=== PATIENT | male | born 1965 | race Caucasian/White ===

== ENCOUNTER 2016-04-20 20:46 | Emergency (ER) | payer BC ==
--- NOTE | 2016-04-20 22:03 | XR ---
EXAMINATION TYPE: XR chest 2V DATE OF EXAM: 04/20/2016 9:55 PM COMPARISON: NONE HISTORY: Trauma TECHNIQUE: Frontal and lateral views of the chest are obtained. FINDINGS: There is no focal air space opacity, pleural effusion, or pneumothorax seen. The cardiac silhouette size is within normal limits. The osseous structures are intact. IMPRESSION: No acute cardiopulmonary process.
--- NOTE | 2016-04-20 22:05 | XR ---
Soft tissue neck HISTORY: Pain, feels like something stuck in throat 2 views of the neck There is overlying artifact. No radiopaque foreign body is evident. The airway is patent. Epiglottis shows a normal appearance in profile. There is reversal the normal cervical lordosis, kyphosis center ed at C4. Some degenerative disc changes are present. IMPRESSION: Loss of cervical lordosis.
--- NOTE | 2016-04-20 22:33 | XR ---
EXAMINATION TYPE: XR abdomen 1V DATE OF EXAM: 04/20/2016 10:24 PM COMPARISON: NONE HISTORY: Abdominal pain TECHNIQUE: 2 views FINDINGS: Bowel gas pattern is normal. There is no sign of intestinal obstruction or pneumoperitoneum . Fecal pattern is normal. Lung bases are clear. There are no pathologic calcifications over the kidn eys. IMPRESSION: Nonacute abdomen.
--- NOTE | 2016-04-20 22:53 | ED ---
ENT HPI - General Chief complaint: ENT Stated complaint: grinding bit stuck in throat, dentist sent Time Seen by Provider: 04/20/16 21:25 Source: patient, RN notes reviewed Mode of arrival: ambulatory Limitations: no limitations - History of Present Illness Initial comments: This is a 50-year-old male who was having dental procedure done prior to admission when apparently a small drill was lost in his upper oral airway. His dentist did try to suction out also patient did vomit try to get whatever was out. He has a feeling to herself at the base of his tongue apparently was a small mass. He has a history of this in the past. He denies any difficulty swallowing denies any shortness of breath any chest pain or abdominal pain. MD complaint: other - Related Data Home Medications Medication Instructions Recorded Confirmed No Known Home Medications [No 04/20/16 04/20/16 Known Home Medications] Allergies Allergy/AdvReac Type Severity Reaction Status Date / Time No Known Allergies Allergy Verified 04/20/16 21:26 Review of Systems ROS Statement: Those systems with pertinent positive or pertinent negative responses have been documented in the HPI. ROS Other: All systems not noted in ROS Statement are negative. Past Medical History Past Medical History: No Reported History History of Any Multi-Drug Resistant Organisms: None Reported Additional Past Surgical History / Comment(s): throat surgery Past Psychological History: No Psychological Hx Reported Smoking Status: Current every day smoker Past Alcohol Use History: None Reported Past Drug Use History: Marijuana General Exam - General Exam Comments Initial Comments: Is a well-developed well-nourished awake alert oriented 3 male Limitations: no limitations General appearance: alert, in no apparent distress Head exam: Present: atraumatic, normocephalic, normal inspection Eye exam: Present: normal appearance, PERRL, EOMI. Absent: scleral icterus, conjunctival injection, periorbital swelling ENT exam: Present: normal exam, mucous membranes moist Neck exam: Present: normal inspection. Absent: tenderness, meningismus, lymphadenopathy Respiratory exam: Present: normal lung sounds bilaterally. Absent: respiratory distress, wheezes, rales, rhonchi, stridor Cardiovascular Exam: Present: regular rate, normal rhythm, normal heart sounds. Absent: systolic murmur, diastolic murmur, rubs, gallop, clicks GI/Abdominal exam: Present: soft, normal bowel sounds. Absent: distended, tenderness, guarding, rebound, rigid Extremities exam: Present: normal inspection, full ROM, normal capillary refill. Absent: tenderness, pedal edema, joint swelling, calf tenderness Back exam: Present: normal inspection Neurological exam: Present: alert, oriented X3, CN II-XII intact Psychiatric exam: Present: normal affect, normal mood Skin exam: Present: warm, dry, intact, normal color. Absent: rash Medical Decision Making - Medical Decision Making I did discuss the findings with the patient no evidence of foreign body is seen I did review the sample drilled the patient did bring in it is metallic is just less than 1 inch long. Patient will be discharged he was warned about findings that he could experiences there is indeed a foreign body but again no evidence on x-ray I did review the images it was read by radiology. - Radiology Data Radiology results: report reviewed (X-rays were done of the soft tissue neck chest and abdomen no evidence of any foreign body is seen.), image reviewed Disposition Clinical Impression: Feared condition not demonstrated Disposition: HOME SELF-CARE Condition: Good Additional Instructions: Follow-up with her dentist and return if needed
[2016-04-20 23:20] VITALS: BP 125/76; PULSE 65; RESP 16; TEMP 98.1
== END 2016-04-20 23:19 | disposition home or self-care (01) ==
LOC: EC 20:46
DX: Z03.89 Encounter for observation for other suspected diseases and conditions ruled out (principal); F17.200 Nicotine dependence, unspecified, uncomplicated
CPT/HCPCS: 70360; 71020; 74000; 99283

== ENCOUNTER → 2022-06-24 | Outpatient (CLI) | payer BC ==
--- NOTE | 2022-06-24 10:51 | CT ---
EXAMINATION TYPE: CT abdomen wo/w con DATE OF EXAM: 06/24/2022 COMPARISON: Kidney ultrasound 05/30/2022 HISTORY: 57-year-old male N28.1, right renal mass TECHNIQUE: Contiguous axial scanning of the abdomen before and after administration of 70 ml Isovue 3 00 IV contrast. Delayed images through the kidneys and coronal/sagittal reconstructions performed. CT DLP: 860 mGycm Automated exposure control for dose reduction was used. FINDINGS: Heart normal size without pericardial effusion. Lung bases clear without pleural effusion. Ectatic l ower descending thoracic aorta at 2.9 cm. No focal liver lesion or biliary ductal dilatation. Portal venous system is patent. Gallbladder, adrenal glands, left kidney, spleen with hilar splenule, and pancreas within normal limi ts. There is a benign 7 mm renal cortical cyst at the right kidney midpole. At the lateral upper to mid pole corresponding to the ultrasound lesion, there is an indeterminate 1. 5 cm cortical lesion. A hemorrhagic cyst or small early RCC are both in the differential. The former is somewhat favored at this time. No dilated small bowel, including, or free air. No mesenteric or retroperitoneal lymphadenopathy. Mild atherosclerotic calcifications infrarenal and aorta and common iliac arteries. Moderate stool burden. No pericolonic inflammatory change. Pelvis not imaged. Bones: Osseous destructive process. IMPRESSION: 1. INDETERMINATE 1.5 CM CORTICAL LESION AT THE UPPER TO MID POLE OF THE RIGHT KIDNEY. BOTH HEMORRHAGI C CYST AND A SMALL EARLY RCC ARE IN THE DIFFERENTIAL. THE FORMER IS SOMEWHAT FAVORED AT THIS TIME. CO NSIDER SURVEILLANCE FOLLOW-UP. INTERVENTION IF ANY SUSPICIOUS CHANGES DEVELOP. 2. MODERATE STOOL BURDEN.
== END | disposition home or self-care (01) ==
LOC: RADCTMAIN 09:32
PROVIDERS: ATTEND Urology
DX: N28.1 Cyst of kidney, acquired (principal)
CPT/HCPCS: 74170; Q9967

== ENCOUNTER → 2023-07-12 | Outpatient (CLI) | payer BC ==
--- NOTE | 2023-07-16 10:47 | MR ---
EXAMINATION TYPE: MR abdomen wo/w con DATE OF EXAM: 07/12/2023 6:07 PM CLINICAL INDICATION:Male, 58 years old with history of N28.1 RENAL CYST; PHH, F/U renal cyst COMPARISON: CT scan abdomen from 06/24/2022, 05/30/2022 ultrasound. TECHNIQUE: Multiplanar multi-sequence imaging was performed without contrast. Post contrast imaging was performed. Post IV contrast subtraction images were also submitted for review. IV Contrast: 7.5 cc Gadobutrol FINDINGS: LOWER CHEST: No gross irregularity. ABDOMEN Liver: No evidence for hepatic steatosis or cirrhosis. Gallbladder and Bile ducts: No evidence for ductal dilation, or biliary stricture or evidence of chol edocholithiasis. The gallbladder is within normal limits. Pancreas: No ductal dilation. No evidence for solid mass. Spleen: Normal for size. Adrenal glands: Unremarkable. Kidneys: Right renal cyst in the superior pole is low T2/high T1 signal measuring 13 mm. Postcontrast imaging with subtraction is misregistered and of limited value. No obvious enhancement thought to be present. No left renal masses. Stomach and Bowel: No evidence for bowel wall thickening or evidence for obstruction. Retroperitoneum/Peritoneum: No evidence of pneumoperitoneum or free fluid. Vasculature: No aortic aneurysm. Musculoskeletal: The osseous structures appear intact. Lymph Nodes: No gross evidence for lymphadenopathy. Abdominal wall: Unremarkable. IMPRESSION: Right renal lesion measuring 13 mm which is intrinsically high T1 signal suggesting proteinaceous hem orrhagic cyst. Subtraction imaging is misregistered to evaluate for subtle enhancement. Consider foll ow-up in 6 months to ensure stability.
== END | disposition home or self-care (01) ==
LOC: RADMRIMAIN 16:48
PROVIDERS: ATTEND Urology
DX: N28.89 Other specified disorders of kidney and ureter (principal); N28.1 Cyst of kidney, acquired
CPT/HCPCS: 74183; A9585

== ENCOUNTER 2024-07-18 04:06 | Observation (INO) | payer BC ==
[2024-07-18] MEDS: SODIUM CHLORIDE 0.9% 500 ML 500 ML IV STA (05:09)
[2024-07-18 05:15] LABS: Basophils # (A) 0.07 10*3/uL (0.00-0.10); Basophils % (A) 0.8 %; Eosinophils # (A) 0.25 10*3/uL (0.04-0.35); HCT 48.6 % (39.6-50.0); HGB 16.8 g/dL (13.0-17.0); Lymphocytes # (A) 2.59 10*3/uL (0.90-5.00); Lymphocytes % (A) 31.4 %; MCH 31.1 pg (27.0-32.0); MCHC 34.6 g/dL (32.0-37.0); Mean Platelet Volume 10.4 fL (9.5-12.2); Monocytes # (A) 0.52 10*3/uL (0.20-1.00); Monocytes % (A) 6.3 %; Neutrophils % (A) 58.4 %; Platelet Count 260 10*3/uL (140-440); RDW 12.3 % (11.5-14.5); WBC 8.24 10*3/uL (4.50-10.00)
[2024-07-18 05:39] LABS: ALT 18 U/L (4-49); AST 24 U/L (17-59); African American GFR (CKD) >90 (>60 ml/min/1.73 sqM); Albumin 4.8 g/dL (3.5-5.0); Alkaline Phosphatase 66 U/L (38-126); Anion Gap 9 mmol/L; Blood Urea Nitrogen 12 mg/dL (9-20); Calcium 10.2 mg/dL (8.4-10.2); Carbon Dioxide 28 mmol/L (22-30); Chloride 103 mmol/L (98-107); Glucose 124 mg/dL (74-99); Magnesium 2.3 mg/dL (1.6-2.3); Non-African American GFR(CKD) 89 (>60 ml/min/1.73 sqM); Sodium 140 mmol/L (137-145); Total Protein 7.3 g/dL (6.3-8.2)
--- NOTE | 2024-07-18 06:25 | CT ---
EXAMINATION TYPE: CT neck chest w con DATE OF EXAM: 07/18/2024 6:11 AM COMPARISON: CLINICAL INDICATION: Male, 59 years old with history of dysphagia and 20 lb wt loss; PHH, history of throat surgery TECHNIQUE: CT scan of the neck and thorax are performed following with IV Contrast, patient injected with 100 mL of Isovue 300. Axial images are obtained, coronal and sagittal reformatted images are reviewed. CT DLP: [address] CTDI: mGy Automated exposure control for dose reduction was used. FINDINGS: NECK: Airway: No gross abnormality seen. Parotid/submandibular glands: No gross abnormality seen. Carotid/Vascular Structures: No significant abnormality. Osseous Structures: No significant abnormality. Other: Scattered prominent but subcentimeter lymph nodes throughout the neck bilaterally. CHEST: LUNGS: The lungs are grossly clear, there is no concerning parenchymal mass or nodule identified. No suspicious focal consolidation There is no pleural effusion or pneumothorax seen. The tracheobronch ial tree is patent. HEART: Size within normal limits. Mild coronary artery calcification. Moderate left ventricular dilat ation. MEDIASTINUM: There are no greater than 1 cm hilar or mediastinal lymph nodes. No pericardial effusi on is seen. OTHER: Small size hiatal hernia. IMPRESSION: 1. No suspicious mass or adenopathy. Airway is patent. No acute pulmonary process. [facility], , 07/18/2024 6:23 AM
--- NOTE | 2024-07-18 07:47 | ED ---
General Adult HPI - General Chief complaint: ENT Stated complaint: Difficulty swallowing Time Seen by Provider: 07/18/24 04:39 Source: patient Mode of arrival: ambulatory - History of Present Illness Initial comments: This patient is a 59-year-old man who arrives with complaint that he cannot swallow food. Patient states that he started having problems a little over a month ago. The patient states that he has seen his ENT physician who placed a nasopharyngeal scope and did not see any obstruction or dysmotility. The patient states that he subsequently obtained ENT consult and is to go to the clinic on Monday. Patient presents because he tried taking some finally di catrachito chicken with some fluids but was regurgitating this. He is able to tolerate straight fluids without regurgitation or vomiting. No fever or chills. No cough, dyspnea, change in speech. He has had about 20 pounds weight loss in a little over a month. Onset/Timin -: month(s) Severity scale (1-10): 0 Consistency: constant Improves with: none Worsens with: none Associated Symptoms: denies other symptoms Treatments Prior to Arrival: none - Related Data Home Medications Medication Instructions Recorded Confirmed No Known Home Medications 04/20/16 04/20/16 Allergies Allergy/AdvReac Type Severity Reaction Status Date / Time No Known Allergies Allergy Verified 07/18/24 04:13 Review of Systems ROS Statement: Those systems with pertinent positive or pertinent negative responses have been documented in the HPI. ROS Other: All systems not noted in ROS Statement are negative. Constitutional: Denies: fever, chills, weakness Respiratory: Denies: cough, dyspnea, wheezes, hemoptysis Cardiovascular: Denies: chest pain, palpitations, orthopnea, syncope Gastrointestinal: Reports: as per HPI, vomiting. Denies: abdominal pain, nausea, diarrhea, hematemesis Genitourinary: Denies: dysuria, hematuria Musculoskeletal: Denies: back pain Skin: Denies: rash Neurological: Denies: headache, weakness Past Medical History Past Medical History: No Reported History History of Any Multi-Drug Resistant Organisms: None Reported Additional Past Surgical History / Comment(s): throat surgery Past Psychological History: No Psychological Hx Reported Past Alcohol Use History: None Reported Past Drug Use History: Marijuana General Exam General appearance: alert, in no apparent distress Head exam: Present: atraumatic, normocephalic Eye exam: Present: normal appearance. Absent: scleral icterus, conjunctival injection ENT exam: Present: normal oropharynx Neck exam: Present: normal inspection Respiratory exam: Present: normal lung sounds bilaterally. Absent: respiratory distress, wheezes, rales, rhonchi, stridor, chest wall tenderness, accessory muscle use Cardiovascular Exam: Present: regular rate, normal rhythm, normal heart sounds. Absent: systolic murmur, diastolic murmur, rubs, gallop GI/Abdominal exam: Present: soft. Absent: distended, tenderness, guarding, rebound, rigid, mass Extremities exam: Present: normal inspection, normal capillary refill. Absent: pedal edema, calf tenderness Back exam: Present: normal inspection. Absent: CVA tenderness (R), CVA tenderness (L) Neurological exam: Present: alert Skin exam: Present: warm, dry, intact, normal color. Absent: rash Course Vital Signs 07/18/24 07/18/24 04:10 06:42 Temperature 97.8 F Pulse Rate 77 62 Respiratory 18 18 Rate Blood Pressure 149/77 123/70 O2 Sat by Pulse 98 96 Oximetry Medical Decision Making - Lab Data Result diagrams: 07/18/24 05:10 07/18/24 05:10 Lab Results 07/18/24 07/18/24 07/18/24 Range/Units 05:10 05:10 05:10 WBC 8.24 (4.50-10.00) 10*3/uL RBC 5.40 (4.40-5.60) 10*6/uL Hgb 16.8 (13.0-17.0) g/dL Hct 48.6 (39.6-50.0) % MCV 90.0 (80.0-97.0) fL MCH 31.1 (27.0-32.0) pg MCHC 34.6 (32.0-37.0) g/dL Plt Count 260 (140-440) 10*3/uL MPV 10.4 (9.5-12.2) fL Immature Gran % (Auto) 0.1 % Neutrophils % 58.4 % Lymphocytes % 31.4 % Monocytes % 6.3 % Eosinophils % 3.0 % Basophils % 0.8 % Immature Gran # 0.01 (0.00-0.04) 10*3/uL Neutrophils # 4.80 (1.80-7.70) 10*3/uL Lymphocytes # 2.59 (0.90-5.00) 10*3/uL Monocytes # 0.52 (0.20-1.00) 10*3/uL Eosinophils # 0.25 (0.04-0.35) 10*3/uL Basophils # 0.07 (0.00-0.10) 10*3/uL Sodium 140 (137-145) mmol/L Potassium 5.0 (3.5-5.1) mmol/L Chloride 103 (98-107) mmol/L Carbon Dioxide 28 (22-30) mmol/L Anion Gap 9 mmol/L BUN 12 (9-20) mg/dL Creatinine 0.95 (0.66-1.25) mg/dL Est GFR (CKD-EPI)AfAm >90 (>60 ml/min/1.73 sqM) Est GFR (CKD-EPI)NonAf 89 (>60 ml/min/1.73 sqM) Glucose 124 H (74-99) mg/dL Plasma Lactic Acid Aaron 2.0 (0.7-2.0) mmol/L Calcium 10.2 (8.4-10.2) mg/dL Magnesium 2.3 (1.6-2.3) mg/dL Total Bilirubin 1.0 (0.2-1.3) mg/dL AST 24 (17-59) U/L ALT 18 (4-49) U/L Alkaline Phosphatase 66 (38-126) U/L Total Protein 7.3 (6.3-8.2) g/dL Albumin 4.8 (3.5-5.0) g/dL Disposition Clinical Impression: Dysphagia, Weight loss of more than 10% body weight Disposition: ADMITTED IP TO THIS HOSP Condition: Fair Is patient prescribed a controlled substance at d/c from ED?: No Referrals: Mandie Troy PAC [Primary Care Provider] - 1-2 days
[2024-07-18] MEDS ORDERED: ONDANSETRON 4 MG/2 ML VIAL IVP PRN (07:49)
[2024-07-18] MEDS ORDERED: NALOXONE 0.4 MG/ML 1 ML VIAL IV PRN (07:49)
[2024-07-18] MEDS ORDERED: MAG HYDROX/AL HYDROX/SIMETH 30 ML CUP PO PRN (07:49)
[2024-07-18] MEDS: FAMOTIDINE 20 MG/2 ML VIAL IV SCH (08:27)
[2024-07-18] MEDS: SODIUM CHLORIDE 0.9% 1,000 ML IV SCH (08:27)
[2024-07-18] MEDS: PANTOPRAZOLE 40 MG/10 ML VIAL IVP SCH (10:41)
--- NOTE | 2024-07-18 13:50 | P.HPIM ---
History of Present Illness 59-year-old pleasant male female with history of disordered has been going on for about 6 weeks. Patient denied any odynophagia. Patient had a nasopharyngeal scope by his ENT doctor about a month ago which did not show any obstruction. Lymphadenectomy in the nasopharyngeal area in the past. Patient does not have any dysphagia to liquids has a 20 pound weight loss because of his dysphagia. Patient was eval by gastroenterology will undergo upper GI endoscopy today. REVIEW OF SYSTEMS: All other systems are negative except those mentioned in the HPI PHYSICAL EXAMINATION: GENERAL: The patient is alert and oriented x3, not in any acute distress. Well developed, well nourished. HEENT: Pupils are round and equally reacting to light. EOMI. No scleral icterus. No conjunctival pallor. Normocephalic, atraumatic. No pharyngeal erythema. No thyromegaly. CARDIOVASCULAR: S1 and S2 present. No murmurs, rubs, or gallops. PULMONARY: Chest is clear to auscultation, no wheezing or crackles. ABDOMEN: Soft, nontender, nondistended, normoactive bowel sounds. No palpable organomegaly. MUSCULOSKELETAL: No joint swelling or deformity. EXTREMITIES: No cyanosis, clubbing, or pedal edema. NEUROLOGICAL: Gross neurological examination did not reveal any focal deficits. SKIN: No rashes. Assessment and plan Dysphagia to solids Upper GI endoscopy today. - 20 pound weight loss secondary to dysphagia DVT prophylaxis:-Early ambulation Past Medical History Past Medical History: No Reported History History of Any Multi-Drug Resistant Organisms: None Reported Additional Past Surgical History / Comment(s): throat surgery Past Psychological History: No Psychological Hx Reported Past Alcohol Use History: None Reported Past Drug Use History: Marijuana Medications and Allergies Home Medications Medication Instructions Recorded Confirmed Type Atorvastatin [Lipitor] 10 mg PO HS 07/18/24 07/18/24 History Lansoprazole [Prevacid] 30 mg PO AC-BID 07/18/24 07/18/24 History lisinopriL [Zestril] 10 mg PO HS 07/18/24 07/18/24 History Allergies Allergy/AdvReac Type Severity Reaction Status Date / Time No Known Allergies Allergy Verified 07/18/24 11:18 Physical Exam Vitals: Vital Signs Temp Pulse Resp BP Pulse Ox 07/18/24 12:11 77 18 124/82 97 07/18/24 08:25 88 18 133/84 99 07/18/24 06:42 62 18 123/70 96 07/18/24 04:10 97.8 F 77 18 149/77 98 Intake and Output 07/17/24 07/18/24 07/18/24 22:59 06:59 14:59 Other: Weight 65.317 kg Results CBC & Chem 7: 07/18/24 05:10 07/18/24 05:10 Labs: Abnormal Lab Results - Last 24 Hours (Table) 07/18/24 Range/Units 05:10 Glucose 124 H (74-99) mg/dL
[2024-07-18] MEDS: IV FLUID CONTINUATION 1,000 ML IV ONE (15:02)
[2024-07-18] MEDS ORDERED: PROPOFOL 10 MG/ML 20 ML VIAL IV ONE (15:05)
[2024-07-18] MEDS ORDERED: LIDOCAINE 1% INJ 10MG/ML (20 ML MDV) ONE (15:05)
--- NOTE | 2024-07-18 15:21 | P.PCN ---
Date of Procedure: 07/18/24 Procedure(s) Performed: BRIEF HISTORY: Patient is a 59-year-old, pleasant, white male scheduled follow- up upper endoscopy as a part of evaluation of progressive dysphagia to solids for the last 6 weeks duration. He lost 20 pounds in the onset of the symptoms he does have longstanding history of GERD and has been on Prevacid 30 mg twice daily. Last EGD was in 2018 that was normal. PROCEDURE PERFORMED: Esophagogastroduodenoscopy with biopsy. PREOPERATIVE DIAGNOSIS: Progressive dysphagia to solids of 6 weeks duration associate with weight loss. IV sedation per anesthesia. PROCEDURE: After informed consent was obtained, the patient was brought into the endoscopy unit. IV sedation was administered by Anesthesia under continuous monitoring. Initially the Olympus GIF-140 video endoscope was inserted into the mouth. Esophagus intubated without any difficulty. It was gradually advanced into the distal esophagus where there was a circumferential ulcerated mass identified extending from 37 to 41 cm from the incisors. There was evidence of luminal narrowing. With gentle push I was able to advance the scope into the stomach and duodenum and carefully examined. The bulb and the second part of the duodenum appeared normal. The scope at this time was withdrawn to the stomach, adequately insufflated with air, and upon careful examination, mucosa of the antrum, mild erythema consistent with gastritis. Mucosa body, cardia and the fundus appeared normal. The scope was then withdrawn into the esophagus. The GE junction was located at 41 cm from the incisors. Once again the distal esophageal ulcerated mass was identified and this was biopsied. The rest of the esophagus appeared normal. The patient tolerated the procedure well. IMPRESSION: 1. 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 2. Mild gastritis. RECOMMENDATIONS: The findings of this examination were discussed with the patient. At this time we will await biopsy results. Consult oncology. Obtain CT of the chest, abdomen/ pelvis. Start on clear liquid diet.
--- NOTE | 2024-07-18 15:23 | P.CONS ---
History of Present Illness - Reason for Consult Consult date: 07/18/24 Dysphagia, weight loss Requesting physician: Jam Lyons - Chief Complaint Difficulty swallowing, weight loss - History of Present Illness This is a pleasant 59-year-old male who presented to the emergency department with complaints of difficulty swallowing food for the last 1 to 2 months with a 20 pound weight loss during that time. Patient states when he eats food it feels that it is getting stuck in his chest he will get a pressure and then he has to vomit it up and will have also copious amounts of saliva. He does have a history of epiglottis surgery about 14 years ago and he has an established ENT who he recently saw and had scope done without any abnormal findings. Patient has had a previous EGD a few years ago done at [facility] he believes he had a biopsy at that time as well but no records are available at this time. He is able to get liquids down as long as he is drinking slow. Denies any coffee- ground emesis or hematemesis. No abdominal pain. Bowel movements have been normal. Review of Systems REVIEW OF SYSTEMS: CARDIOPULMONARY: No chest pain or shortness of breath. Gastrointestinal: No abdominal pain. No nausea or vomiting. No hematemesis, coffee-ground emesis. No rectal bleeding, or melena. Difficulty with swallowing with episodes of pressure in his chest and vomiting after eating. GENITOURINARY: No dysuria or hematuria. MUSCULOSKELETAL: Reports normal range of motion., Joint pain. SKIN: No rashes. No jaundice. ENDOCRINE: No chills, fevers. No excessive weight gain or loss. No polydipsia or polyuria. PSYCHIATRIC: Unremarkable. NEUROLOGY: No change in mental status. Denies dizziness, headache. ENT: Vision unremarkable. CONSTITUTIONAL: 20 pound weight loss in last 1 to 2 months. No fever, chills, night sweats. Past Medical History Past Medical History: No Reported History History of Any Multi-Drug Resistant Organisms: None Reported Additional Past Surgical History / Comment(s): throat surgery Past Psychological History: No Psychological Hx Reported Past Alcohol Use History: None Reported Past Drug Use History: Marijuana Medications and Allergies Home Medications Medication Instructions Recorded Confirmed Type Atorvastatin [Lipitor] 10 mg PO HS 07/18/24 07/18/24 History Lansoprazole [Prevacid] 30 mg PO AC-BID 07/18/24 07/18/24 History lisinopriL [Zestril] 10 mg PO HS 07/18/24 07/18/24 History Allergies Allergy/AdvReac Type Severity Reaction Status Date / Time No Known Allergies Allergy Verified 07/18/24 11:18 Physical Exam Vitals: Vital Signs Temp Pulse Resp BP Pulse Ox 07/18/24 08:25 88 18 133/84 99 07/18/24 06:42 62 18 123/70 96 07/18/24 04:10 97.8 F 77 18 149/77 98 Intake and Output 07/17/24 07/18/24 07/18/24 22:59 06:59 14:59 Other: Weight 65.317 kg General appearance: The patient is alert, oriented, appears in no acute distress. HET: Head is normocephalic and atraumatic. Conjunctiva pink. Sclera anicteric. Neck: Supple without lymphadenopathy. Trachea midline. Heart: Regular. Lungs: Equal expansion, normal respiratory effort. Abdomen: Soft, nontender, nondistended. Skin: No rashes. No jaundice. Extremities: Normal skin color and turgor. No pedal edema. Neurological: No focal deficits. Alert and oriented x3. Results CBC & Chem 7: 07/18/24 05:10 07/18/24 05:10 Labs: Abnormal Lab Results - Last 24 Hours (Table) 07/18/24 Range/Units 05:10 Glucose 124 H (74-99) mg/dL Comments: Chest CT shows no suspicious mass or adenopathy. Airway is patent. No acute pulmonary process. Assessment and Plan (1) Dysphagia Narrative/Plan: 59-year-old male having difficulty with swallowing food getting stuck and causing pressure in his chest and then emesis for last 1 to 2 months duration with a 20 pound weight loss. Unclear etiology could be secondary to esophageal stricture or other possible etiologies. Has been seen by ENT and normal scope. Recommend proceeding with upper endoscopy for further evaluation. Current Visit: Yes Status: Acute Code(s): R13.10 - DYSPHAGIA, UNSPECIFIED SNOMED Code(s): 34476381 (2) Unintentional weight loss Current Visit: Yes Status: Acute Code(s): R63.4 - ABNORMAL WEIGHT LOSS SNOMED Code(s): 707463931 Plan: 1. Continue symptomatic and supportive care 2. N.p.o. 3. Protonix 40 mg daily 4. Will plan for upper endoscopy today 5. Further recommendations forthcoming based on clinical course Thank you for this consultation, we will continue to follow. Dr. Luis Jaramillo I agree with the dictator's note, documented as a scribe by Desi Ramírez.
[2024-07-18] MEDS: HYDROmorphone 1 MG/ML 1 ML SYRINGE IM STA (17:39)
[2024-07-18] MEDS: lisinopriL 10 MG TAB PO SCH (22:17)
[2024-07-18] MEDS: ATORVASTATIN 10 MG TAB PO SCH (22:17)
[2024-07-19] MEDS: IOPAMIDOL CONTRAST (ORAL USE) VIAL PO PRN (09:01)
--- NOTE | 2024-07-19 11:49 | CT ---
EXAMINATION TYPE: CT abdomen pelvis w con DATE OF EXAM: 07/19/2024 10:51 AM COMPARISON: CT abdomen pelvis most recent from 06/24/2022 CLINICAL INDICATION: Male, 59 years old with history of Dysphagia and esophageal mass on EGD; Dysphag ia and esophageal mass on EGD. TECHNIQUE: Axial CT abdomen pelvis w con;Sagittal and coronal reformats were created on a separate w orkstation. Contrast used:100 ml mL of Isovue 300 with IV Contrast, (none if empty) Oral contrast used: with Oral Contrast (none if empty) CT DLP: 666.5 mGycm, Automated exposure control for dose reduction was used. FINDINGS: LOWER CHEST: Unremarkable ABDOMEN LIVER: Unremarkable GALLBLADDER AND BILE DUCTS: Unremarkable. PANCREAS: Unremarkable. SPLEEN: Unremarkable. ADRENAL GLANDS: Unremarkable. KIDNEYS AND URETERS: No evidence of hydronephrosis or obstructing renal calculus. The ureters are unr emarkable. Simple appearing right renal cortical cyst. No follow-up recommended. PELVIS BLADDER: No evidence for wall thickening or mass given limitations of exam. REPRODUCTIVE: Unremarkable. ABDOMEN & PELVIS STOMACH AND BOWEL: No evidence of bowel obstruction. There is circumferential wall thickening near th e gastroesophageal junction with masslike area measuring at least 4.5 x 4.4 cm and reviewed on the ca rdiac sphincter. This possibly extending up the esophagus. PERITONEUM/RETROPERITONEUM: No evidence of pneumoperitoneum or free fluid. VASCULATURE: Mild atherosclerotic calcifications are present throughout the abdominal aorta and its b ranches. No evidence of aortic aneurysm. MUSCULOSKELETAL: No acute osseous abnormalities. Mild disc degeneration changes are present throughou t the thoracolumbar spine. LYMPH NODES: No gross evidence for lymphadenopathy. SOFT TISSUE/ABDOMINAL WALL: Unremarkable IMPRESSION: Gastroesophageal junction mass possibly representing mass reported on provided history. No definitive metastatic disease at this time, no enlarged lymph nodes by CT criteria. [facility], , 07/19/2024 11:47 AM
--- NOTE | 2024-07-19 14:17 | P.PN ---
Subjective Progress Note Date: 07/19/24 Principal diagnosis: , Esophageal mass, dysphagia This is a pleasant 59-year-old male who presented to the emergency department with complaints of difficulty swallowing food for the last 1 to 2 months with a 20 pound weight loss during that time. Patient states when he eats food it feels that it is getting stuck in his chest he will get a pressure and then he has to vomit it up and will have also copious amounts of saliva. He does have a history of epiglottis surgery about 14 years ago and he has an established ENT who he recently saw and had scope done without any abnormal findings. Patient has had a previous EGD a few years ago done at [facility] he believes he had a biopsy at that time as well but no records are available at this time. He is able to get liquids down as long as he is drinking slow. Denies any coffee- ground emesis or hematemesis. No abdominal pain. Bowel movements have been normal. July 19, 2024 Patient is seen and examined today as a follow-up. Yesterday he underwent upper endoscopy with findings of esophageal mass. CT abdomen pelvis ordered currently pending biopsies pending. Oncology consulted. Patient was given some water through the night but that was it. Denies any nausea or vomiting. No abdominal pain. Objective - Vital Signs Vital signs: Vital Signs Temp 97.8 F 07/19/24 00:46 Pulse 72 07/19/24 00:46 Resp 18 07/19/24 00:46 BP 107/66 07/19/24 00:46 Pulse Ox 98 07/19/24 00:46 FiO2 Intake & Output 07/18/24 07/18/24 07/19/24 06:59 18:59 06:59 Intake Total 500 Balance 500 Weight 65.317 kg 65.317 kg Intake: IV 500 Other: Voiding Method Toilet # Voids 2 - Exam General appearance: The patient is alert, oriented, appears in no acute di stress. HET: Head is normocephalic and atraumatic. Conjunctiva pink. Sclera anicteric. Neck: Supple without lymphadenopathy. Abdomen: Soft, nontender, nondistended. Extremities: Normal skin color and turgor. No pedal edema Skin: No rashes, no jaundice Neurological: No focal deficits. Alert and oriented. - Labs CBC & Chem 7: 07/18/24 05:10 07/18/24 05:10 Assessment and Plan (1) Dysphagia Narrative/Plan: 59-year-old male having difficulty with swallowing food getting stuck and causing pressure in his chest and then emesis for last 1 to 2 months duration with a 20 pound weight loss. Unclear etiology could be secondary to esophageal stricture or other possible etiologies. Has been seen by ENT and normal scope. Recommend proceeding with upper endoscopy for further evaluation. Patient is status post upper endoscopy with findings of distal esophageal circumferential ulcerated mass. Status post multiple biopsies taken. CT abdomen pelvis reports gastroesophageal junction mass possibly representing mass reported provided history. No definitive metastatic disease at this time. No enlarged lymph nodes by CT criteria. Awaiting recommendations from oncology Current Visit: Yes Status: Acute Code(s): R13.10 - DYSPHAGIA, UNSPECIFIED SNOMED Code(s): 96913529 (2) Unintentional weight loss Current Visit: Yes Status: Acute Code(s): R63.4 - ABNORMAL WEIGHT LOSS SNOMED Code(s): 876379247 Plan: 1. Continue symptomatic and supportive care 2. Patient may have full liquid diet, then diet as tolerated 3. Patient is status post upper endoscopy 4. CT abdomen pelvis ordered 5. Protonix 40 mg daily 6. Oncology consulted. Appreciate their recommendations 7. Multiple biopsies taken, currently pending. Patient can follow-up for biopsies. Outpatient follow-up with oncology. Thank you for this consultation, we we will sign off at this time. Dr. Luis Jaramillo I agree with the dictator's note, documented as a scribe by Desi Ramírez.
[2024-07-19 16:14] VITALS: BP 118/71; PULSE 65; RESP 16; TEMP 98
[2024-07-19 16:36] VITALS: BMI 20.6
--- NOTE | 2024-07-21 18:40 | P.CONS ---
History of Present Illness - Reason for Consult Consult date: 07/19/24 esophageal mass Requesting physician: Neli Jaramillo - Chief Complaint dysphagia - History of Present Illness Patient is a 59-year-old male with a significant history of acid reflux and previous smoker (37 pack years, quit 2 years ago). Consult was placed for distal esophageal mass. Patient presented to the emergency room with progressing dysphagia with associated 20 pound weight loss. Patient also endorses lower chest pressure when swallowing food. States when he eats solids he spits up his food as it is not able to pass through. He is able to tolerate fluids. Denies hematemesis. Patient states he did see his ENT and had a laryngoscope which was normal. Upon admit CT neck and chest with contrast showing no suspicious mass or adenopathy, airways patent. Patient subsequently underwent EGD which noted distal esophageal circumferential ulcerated mass with luminal narrowing extending from 37 to 41 cm from incisors. Biopsies currently pending. CT abdomen pelvis with contrast showing gastroesophageal junction mass. No definitive metastatic disease at this time, no enlarged lymph nodes. WBC 8.2, hemoglobin 16.8, platelets 260,000. Creatinine 0.95, GFR greater than 90. LFTs and bilirubin WNL. Review of Systems 10 point ROS is negative except as stated in the HPI Past Medical History Past Medical History: GERD/Reflux, Hyperlipidemia, Hypertension History of Any Multi-Drug Resistant Organisms: None Reported Additional Past Surgical History / Comment(s): throat surgery Smoking Status: Former smoker, Vaper - Past Family History Mother Additional Family Medical History / Comment(s): cancer Medications and Allergies Home Medications Medication Instructions Recorded Confirmed Type Atorvastatin [Lipitor] 10 mg PO HS 07/18/24 07/18/24 History lisinopriL [Zestril] 10 mg PO HS 07/18/24 07/18/24 History Pantoprazole [Protonix] 40 mg PO BID #60 tab 07/19/24 Rx Allergies Allergy/AdvReac Type Severity Reaction Status Date / Time No Known Allergies Allergy Verified 07/18/24 11:18 Physical Exam Vitals: Vital Signs Temp Pulse Resp BP Pulse Ox 07/19/24 16:36 65 16 07/19/24 16:13 98.0 F 65 16 118/71 98 07/19/24 13:30 97.8 F 75 15 134/73 99 07/19/24 07:02 97.8 F 67 15 137/74 100 07/19/24 00:46 97.8 F 72 18 107/66 98 07/18/24 19:07 98.2 F 60 20 127/80 99 Intake and Output 07/19/24 07/19/24 07/19/24 06:59 14:59 22:59 Other: Voiding Method Toilet # Voids 2 Weight 65.317 kg - Constitutional General appearance: no acute distress - EENT Eyes: anicteric sclerae, EOMI ENT: hearing grossly normal - Respiratory Respiratory: bilateral: CTA - Cardiovascular Rhythm: regular - Gastrointestinal General gastrointestinal: soft, no tenderness - Integumentary Integumentary: no cyanotic, no jaundiced - Neurologic Neurologic: CNII-XII intact - Musculoskeletal Musculoskeletal: strength equal bilaterally - Psychiatric Psychiatric: A&O x's 3 Results CBC & Chem 7: 07/18/24 05:10 07/18/24 05:10 CT scan - abdomen: report reviewed CT scan - chest: report reviewed CT scan - pelvis: report reviewed Assessment and Plan (1) Esophageal mass Status: Acute Priority: High Code(s): K22.89 - OTHER SPECIFIED DISEASE OF ESOPHAGUS SNOMED Code(s): 108865844 (2) Dysphagia Status: Acute Priority: High Code(s): R13.10 - DYSPHAGIA, UNSPECIFIED SNOMED Code(s): 58891599 (3) Unintentional weight loss Status: Acute Priority: High Code(s): R63.4 - ABNORMAL WEIGHT LOSS SNOMED Code(s): 176561317 Plan: Dysphagia, esophageal mass: Patient presented to the emergency room with progressing dysphagia with associated 20 pound weight loss. Patient also endorses lower chest pressure when swallowing food. States when he eats solids he spits up his food as it is not able to pass through. Patient has hx of 37 pack year smoker, quitting 2 years ago. Denies ETOH abuse. Hx of GERD. -Upon admit CT neck and chest with contrast showing no suspicious mass or adenopathy, airways patent. -Patient subsequently underwent EGD which noted distal esophageal circumferential ulcerated mass with luminal narrowing extending from 37 to 41 cm from incisors. Biopsies currently pending. -CT abdomen pelvis with contrast showing gastroesophageal junction mass. No definitive metastatic disease at this time, no enlarged lymph nodes. -Will plan for outpt PET CT and EUS to complete staging -Pt encouraged to supplement diet with protein drinks like ensure or boost. If he continues to lose weight, may need to consider J tube for parenteral nutrition -Clinic f/u upon discharge Case discussed with admitting team attests: I have performed H&P and developed impression and plan of care for patient, discussed with dictator. I agree with dictated noted, documented as a scribe
== END 2024-07-19 17:25 | disposition home or self-care (01) ==
LOC: EC 04:06 → 6NMEDSUR 07:49 → 4SSUR 16:44
PROVIDERS: ADMIT Hospitalist; ATTEND Hospitalist
DX: C15.5 Malignant neoplasm of lower third of esophagus (principal); K29.70 Gastritis, unspecified, without bleeding; K21.9 Gastro-esophageal reflux disease without esophagitis; I10 Essential (primary) hypertension; E78.5 Hyperlipidemia, unspecified; R63.4 Abnormal weight loss; Z68.20 Body mass index [BMI] 20.0-20.9, adult; Z87.891 Personal history of nicotine dependence; Z79.899 Other long term (current) drug therapy
CPT/HCPCS: 96376; 96375; 96374; 99285; 36415; 88305; 80053; 83605; 83735; 85025; 88342; 88341; 70491; 71260; 74177; 43239; G0378 ×2; J2003; J3490; J2704; Q9967 ×2; J2470 ×2